=== PATIENT | female | born 1970 | race Two or more races ===

== ENCOUNTER 2021-06-23 08:48 | Day surgery (SDC) | payer OTHER ==
[2021-06-20 17:15] VITALS: BMI 19.5
[2021-06-23 11:00] VITALS: TEMP 98.4
[2021-06-23 11:08] VITALS: BP 98/61; PULSE 82
== END 2021-06-23 11:35 | disposition home or self-care (01) ==
LOC: FASU-ENDO 08:48
PROVIDERS: ATTEND Internal Medicine Gastroenterology
PROC: 0DJD8ZZ Inspection of Lower Intestinal Tract, Via Natural or Artificial Opening Endoscopic (ICD-10-PCS; principal; 2021-06-23 10:32)
DX: Z12.11 Encounter for screening for malignant neoplasm of colon (principal)
CPT/HCPCS: 84703